=== PATIENT | female | born 1975 | race African-American/Black ===

== ENCOUNTER 2020-10-14 22:33 | Emergency (ER) | payer OTHER ==
[~2020-10-14] VITALS: Ht 167.6 cm; Wt 104.3 kg
[2020-10-14] MEDS ORDERED: HUMIRA40 MG/0.4 SUBQ (22:46)
[2020-10-14] MEDS ORDERED: SPIRONOLACTONE100 M1 PO (22:47)
[2020-10-14] MEDS ORDERED: DOXYCYCLINE 10100 MG PO (23:11)
[2020-10-14 23:30] VITALS: BP 156/80
== END 2020-10-14 23:31 | disposition home or self-care (01) ==
LOC: ER 22:33
DX: L73.2 Hidradenitis suppurativa (principal); Z91.040 Latex allergy status; Z88.2 Allergy status to sulfonamides